=== PATIENT | male | born 1950 | race Hispanic/Latino ===

== ENCOUNTER 2018-08-20 02:31 | Emergency (ER) | payer OTHER ==
[~2018-08-20 02:31] MED LIST: ASPI-1012 PO; CITA-107 PO; LOVA10TA2 PO; METF-444 PO; METO-391 PO; RAMI2.5C16 PO; SPIR50TA5 PO
[2018-08-20] MEDS ORDERED: CYCLOBENZAPRINE HCL 10 MG TABLET ONE (02:44)
[2018-08-20] MEDS ORDERED: KETOROLAC TROMETHAMINE 30MG/ML ONE (02:44)
== END 2018-08-20 02:53 | disposition home or self-care (01) ==
LOC: EDH 02:31
DX: M62.838 Other muscle spasm (principal); M54.2 Cervicalgia; E11.9 Type 2 diabetes mellitus without complications; I10 Essential (primary) hypertension
CPT/HCPCS: 96372; 99283; J1885

== ENCOUNTER 2018-08-21 02:08 | Emergency (ER) | payer OTHER ==
[2018-08-21] MEDS ORDERED: ORPHENADRINE CITRATE 30 MG/ML ML ONE (03:12)
[2018-08-21] MEDS ORDERED: KETOROLAC TROMETHAMINE 30MG/ML ONE (03:12)
== END 2018-08-21 04:41 | disposition home or self-care (01) ==
LOC: EDH 02:08
DX: M54.2 Cervicalgia (principal); M47.9 Spondylosis, unspecified; M62.838 Other muscle spasm; E11.9 Type 2 diabetes mellitus without complications; I10 Essential (primary) hypertension; Z95.0 Presence of cardiac pacemaker; Z98.890 Other specified postprocedural states; Z79.84 Long term (current) use of oral hypoglycemic drugs
CPT/HCPCS: 72125; 96372 ×2; 99284; J1885; J2360

== ENCOUNTER 2018-08-22 00:59 | Emergency (ER) | payer OTHER ==
[2018-08-22 01:43] LABS: BASOPHILS % (AUTO) 0.7 % (0.0-5.0); HEMATOCRIT 36.6 % (42-54); LYMPHOCYTES % (AUTO) 39.8 % (21.0-51.0); MEAN CORPUSCULAR HGB CONC 33.6 g/dL (32.0-36.0); MEAN CORPUSCULAR VOLUME 95.1 fL (79-99); MONOCYTES % (AUTO) 8.7 % (3.0-13.0); NEUTROPHILS % (AUTO) 47.8 % (40.0-77.0); NUCLEATED RED BLOOD CELLS 0.1 % (0.0-0.19); PLATELET COUNT (AUTO) 186 K/uL (130-400); RED BLOOD CELL COUNT(AUTO) 3.85 MIL/uL (4.50-6.20); RED CELL DISTRIBUTION WIDTH 12.8 % (11.0-15.5); WHITE BLOOD COUNT (AUTO) 5.8 K/uL (4.8-10.8)
[2018-08-22 02:08] LABS: CARBON DIOXIDE 28 mmol/L (21-32); CHLORIDE 103 mmol/L (101-111); CREATININE 0.9 mg/dL (0.5-1.5); GLOMERULAR FILTR. RATE CALC 89 mL/min (>60); GLUCOSE,RANDOM 205 mg/dL (70-105); POTASSIUM 4.1 mmol/L (3.5-5.1); SODIUM SERUM 142 mmol/L (136-145); UREA NITROGEN, BLOOD 24 mg/dL (7-18)
[2018-08-22 02:13] LABS: CREATINE KINASE, TOTAL 138 U/L (21-232)
[2018-08-22 02:39] LABS: CRP QUANTITATIVE < 2.00 mg/L (0.00-9.0)
[2018-08-22 02:47] LABS: ERYTHROCYTE SEDIMENTATION RATE 10 MM/HR (0-20)
[2018-08-22] MEDS ORDERED: ORPHENADRINE CITRATE 30 MG/ML ML ONE (02:55)
== END 2018-08-22 05:09 | disposition home or self-care (01) ==
LOC: EDH 00:59
DX: M47.892 Other spondylosis, cervical region (principal); E11.65 Type 2 diabetes mellitus with hyperglycemia; I10 Essential (primary) hypertension
CPT/HCPCS: 36415; 80048; 82550; 84484; 85025; 85651; 86140; 93005; 96374; 99285; J2360

== ENCOUNTER 2018-08-23 01:36 | Emergency (ER) | payer OTHER ==
[2018-08-23 02:39] LABS: BASOPHILS % (AUTO) 0.4 % (0.0-5.0); EOSINOPHILS % (AUTO) 3.7 % (0.0-8.0); HEMATOCRIT 36.8 % (42-54); LYMPHOCYTES % (AUTO) 35.7 % (21.0-51.0); MEAN CORPUSCULAR HEMOGLOBIN 31.7 pg (27.0-33.0); MEAN CORPUSCULAR HGB CONC 33.4 g/dL (32.0-36.0); MEAN CORPUSCULAR VOLUME 94.9 fL (79-99); MONOCYTES % (AUTO) 9.1 % (3.0-13.0); NEUTROPHILS % (AUTO) 51.1 % (40.0-77.0); PLATELET COUNT (AUTO) 187 K/uL (130-400); RED BLOOD CELL COUNT(AUTO) 3.88 MIL/uL (4.50-6.20); RED CELL DISTRIBUTION WIDTH 12.7 % (11.0-15.5); WHITE BLOOD COUNT (AUTO) 5.6 K/uL (4.8-10.8)
[2018-08-23 02:48] LABS: POTASSIUM 4.6 mmol/L (3.5-5.1)
[2018-08-23 02:52] LABS: ALBUMIN 3.6 g/dL (3.5-5.0); BILIRUBIN,TOTAL 0.4 mg/dL (0.2-1.0); TOTAL PROTEIN, SERUM 7.1 g/dL (6.0-8.3)
[2018-08-23 03:00] LABS: CREATINE KINASE, TOTAL 98 U/L (21-232); MYOGLOBIN 29 ng/mL (10-92); TROPONIN I < 0.04 ng/mL (0.00-0.06)
[2018-08-23] MEDS ORDERED: METHYLPREDNISOLONE SOD SUCC 125MG/2ML VIAL ONE (03:47)
[2018-08-23] MEDS ORDERED: TRAMADOL HCL 50 MG TABLET ONE (03:48)
== END 2018-08-23 04:15 | disposition home or self-care (01) ==
LOC: EDH 01:36
DX: M25.512 Pain in left shoulder (principal); E11.65 Type 2 diabetes mellitus with hyperglycemia; I10 Essential (primary) hypertension; Z95.0 Presence of cardiac pacemaker; Z98.890 Other specified postprocedural states
CPT/HCPCS: 36415; 71045; 73030; 80053; 82550; 83874; 84484; 85025; 93005; 96374; 99285; J2930

== ENCOUNTER 2018-08-26 01:43 | Emergency (ER) | payer OTHER ==
[2018-08-26] MEDS ORDERED: KETOROLAC TROMETHAMINE 15MG/ML ONE (02:02)
== END 2018-08-26 02:09 | disposition home or self-care (01) ==
LOC: EDH 01:43
DX: G89.29 Other chronic pain (principal); M54.2 Cervicalgia; M54.5 Low back pain; E11.9 Type 2 diabetes mellitus without complications; I10 Essential (primary) hypertension; I25.10 Atherosclerotic heart disease of native coronary artery without angina pectoris; Z95.0 Presence of cardiac pacemaker; Z98.890 Other specified postprocedural states
CPT/HCPCS: 96372; 99283; J1885

== ENCOUNTER 2020-11-02 19:46 | Emergency (ER) | payer OTHER ==
[2020-11-02] MEDS ORDERED: CYCLOBENZAPRINE HCL 10 MG TABLET ONE (20:13)
[2020-11-02] MEDS ORDERED: HYDROCODONE/ACETAMINOPHEN 10/325 MG TAB ONE (20:15)
== END 2020-11-02 22:03 | disposition home or self-care (01) ==
LOC: EDH 19:46
DX: M43.16 Spondylolisthesis, lumbar region (principal); I10 Essential (primary) hypertension; E11.9 Type 2 diabetes mellitus without complications; I25.10 Atherosclerotic heart disease of native coronary artery without angina pectoris; Z95.0 Presence of cardiac pacemaker
CPT/HCPCS: 72100; 72131

== ENCOUNTER 2021-02-12 17:42 | Emergency (ER) | payer OTHER ==
[~2021-02-12 17:42] MED LIST changes: -RAMI2.5C16 PO; +RAMI2.5C55 PO
[2021-02-12] MEDS ORDERED: LIDOCAINE HCL 1% 20 ML VIAL ONE (18:51)
[2021-02-12] MEDS ORDERED: LIDOCAINE HCL 2% VISCOUS 15 ML UDCUP ONE (18:51)
== END 2021-02-12 20:42 | disposition home or self-care (01) ==
LOC: EDH 17:42
DX: S01.511A Laceration without foreign body of lip, initial encounter (principal); S02.5XXA Fracture of tooth (traumatic), initial encounter for closed fracture; I11.0 Hypertensive heart disease with heart failure; E11.9 Type 2 diabetes mellitus without complications; W18.39XA Other fall on same level, initial encounter; Y93.89 Activity, other specified; Y92.89 Other specified places as the place of occurrence of the external cause; Y99.8 Other external cause status
CPT/HCPCS: 12013; 70450; 72125

== ENCOUNTER 2022-02-27 12:00 | Emergency (ER) | payer OTHER ==
[~2022-02-27] VITALS: Ht 157.5 cm; Wt 81.6 kg
[2022-02-27] MEDS ORDERED: LIDOCAINE HCL MPF 1% 5ML VIAL ONE ×2 (12:30→12:37)
[2022-02-27] MEDS ORDERED: DIPH,PERTUSS(ACELL),TET VAC/PF 0.5 ML VIAL IM SCH (12:30)
[2022-02-27] MEDS ORDERED: TETANUS/DIPHTHERIA TOXOID [ADULT] 0.5 ML VIAL IM ONE (12:37)
[2022-02-27 13:27] VITALS: BP 134/89
== END 2022-02-27 13:33 | disposition home or self-care (01) ==
LOC: EDH 12:00
DX: S01.81XA Laceration without foreign body of other part of head, initial encounter (principal); S50.12XA Contusion of left forearm, initial encounter; E11.9 Type 2 diabetes mellitus without complications; Z79.899 Other long term (current) drug therapy; Z79.82 Long term (current) use of aspirin; Z79.84 Long term (current) use of oral hypoglycemic drugs; Z98.890 Other specified postprocedural states; W01.10XA Fall on same level from slipping, tripping and stumbling with subsequent striking against unspecified object, initial encounter; Y93.9 Activity, unspecified; Y92.9 Unspecified place or not applicable; Y99.9 Unspecified external cause status
CPT/HCPCS: 12013; 90471; 90715; 99283; J3490 ×2; 90714

== ENCOUNTER 2022-03-08 16:46 | Emergency (ER) | payer OTHER ==
[~2022-03-08] VITALS: Ht 167.6 cm; Wt 83.5 kg
[2022-03-08 16:51] VITALS: BP 133/75
== END 2022-03-08 18:02 | disposition left against medical advice (07) ==
LOC: EDH 16:46
DX: S01.81XD Laceration without foreign body of other part of head, subsequent encounter (principal); E11.9 Type 2 diabetes mellitus without complications; E78.00 Pure hypercholesterolemia, unspecified; I10 Essential (primary) hypertension; Z79.82 Long term (current) use of aspirin; Z79.84 Long term (current) use of oral hypoglycemic drugs; Z79.899 Other long term (current) drug therapy; X58.XXXA Exposure to other specified factors, initial encounter; Y93.89 Activity, other specified; Y92.89 Other specified places as the place of occurrence of the external cause; Y99.8 Other external cause status
CPT/HCPCS: 99281

== ENCOUNTER 2022-04-22 17:12 | Emergency (ER) | payer OTHER ==
[~2022-04-22] VITALS: Ht 170.2 cm; Wt 79.8 kg
[2022-04-22 17:33] LABS: BASOPHILS % (AUTO) 0.2 % (0.0-5.0); EOSINOPHILS % (AUTO) 0.4 % (0.0-8.0); HEMATOCRIT 39.9 % (42-54); LYMPHOCYTES % (AUTO) 22.7 % (21.0-51.0); MEAN CORPUSCULAR HEMOGLOBIN 31.1 pg (27.0-33.0); MEAN CORPUSCULAR HGB CONC 33.6 g/dL (32.0-36.0); MEAN CORPUSCULAR VOLUME 92.6 fL (79-99); MONOCYTES % (AUTO) 4.6 % (3.0-13.0); NEUTROPHILS % (AUTO) 71.9 % (40.0-77.0); PLATELET COUNT (AUTO) 220 K/uL (130-400); RED BLOOD CELL COUNT(AUTO) 4.31 MIL/uL (4.50-6.20); RED CELL DISTRIBUTION WIDTH 11.9 % (11.0-15.5); WHITE BLOOD COUNT (AUTO) 8.3 K/uL (4.8-10.8)
[2022-04-22 17:47] LABS: CREATININE 0.8 mg/dL (0.5-1.5)
[2022-04-22 17:55] LABS: ALBUMIN 4.4 g/dL (3.5-5.0); BILIRUBIN,TOTAL 0.5 mg/dL (0.2-1.0); TOTAL PROTEIN, SERUM 7.6 g/dL (6.0-8.3)
[2022-04-22] MEDS ORDERED: PANTOPRAZOLE 40 MG/VIAL IVP ONE (18:00)
[2022-04-22] MEDS ORDERED: MECLIZINE HCL 25 MG TABLET PO ONE (18:00)
[2022-04-22] MEDS ORDERED: ONDANSETRON 4MG INJ IVP ONE (18:00)
[2022-04-22] MEDS ORDERED: 0.9%NACL 1000ML 1,000 ML IV ONE (18:00)
[2022-04-22 18:01] LABS: APPEARANCE,URINE Clear (CLEAR); BILIRUBIN,URINE Negative (NEGATIVE); COLOR,URINE Yellow (YELLOW); GLUCOSE, URINE (UA) 250 mg/dL (NEGATIVE); KETONES,URINE Trace mg/dL (NEGATIVE); LEUKOCYTE ESTERASE ,URINE Negative (NEGATIVE); NITRATE,URINE Negative (NEGATIVE); OCCULT BLOOD,URINE Negative (NEGATIVE); PROTEIN,URINE Trace mg/dL (NEGATIVE)
[2022-04-22 18:11] LABS: BACTERIA,URINE Rare /HPF (None Seen); MUCUS,URINE Moderate LPF (None Seen); SQUAMOUS EPITHELIAL CELL,UR Few /HPF (0-2)
[2022-04-22] MEDS ORDERED: ONDA4TAB10 PO (19:31)
[2022-04-22] MEDS ORDERED: MECL-262 PO (19:31)
[2022-04-22 19:34] VITALS: BP 127/78
== END 2022-04-22 19:38 | disposition home or self-care (01) ==
LOC: EDH 17:12
DX: H81.10 Benign paroxysmal vertigo, unspecified ear (principal); R00.1 Bradycardia, unspecified; R11.2 Nausea with vomiting, unspecified; E11.9 Type 2 diabetes mellitus without complications; E78.00 Pure hypercholesterolemia, unspecified; I10 Essential (primary) hypertension; Z79.899 Other long term (current) drug therapy
CPT/HCPCS: 36415; 70450; 80053; 81001; 84484; 85025; 93005; 96361; 96374; 96375; 99285; C9113; J2405; J7030

== ENCOUNTER 2023-11-15 16:01 | Emergency (ER) | payer OTHER ==
[~2023-11-15] VITALS: Ht 170.2 cm; Wt 76.7 kg
[~2023-11-15 16:01] MED LIST changes: +MECL-262 PO; +ONDA4TAB10 PO
[2023-11-15 16:09] VITALS: BP 116/71; PULSE 66; RESP 16; O2SAT 98
[2023-11-15] MEDS ORDERED: M-SA237L TP (17:25)
[2023-11-15] MEDS ORDERED: DICL20GE TP (17:25)
[2023-11-15] MEDS ORDERED: LIDOP TP (17:25)
[2023-11-15] MEDS ORDERED: KETOROLAC 30MG VIAL (30MG/ML) IM ONE (17:30)
[2023-11-15] MEDS ORDERED: HYDROCODONE/ACETAMINOPHEN 5/325 MG TAB PO ONE (17:30)
== END 2023-11-15 18:14 | disposition home or self-care (01) ==
LOC: EDH 16:01
DX: M54.31 Sciatica, right side (principal); M12.88 Other specific arthropathies, not elsewhere classified, other specified site; I10 Essential (primary) hypertension; E11.9 Type 2 diabetes mellitus without complications; E78.00 Pure hypercholesterolemia, unspecified; Z79.82 Long term (current) use of aspirin; Z79.84 Long term (current) use of oral hypoglycemic drugs; Z79.899 Other long term (current) drug therapy; Z98.890 Other specified postprocedural states
CPT/HCPCS: 99284; 96372; J1885

== ENCOUNTER 2025-09-19 23:37 | Emergency (ER) | payer OTHER ==
[~2025-09-19] VITALS: Ht 167.6 cm; Wt 73.5 kg
[~2025-09-19 23:37] MED LIST changes: +DICL20GE TP; +LIDOP TP; +M-SA237L TP; +ONDA-243 PO; -ONDA4TAB10 PO; -RAMI2.5C55 PO; +RAMI2.5C57 PO
--- NOTE | 2025-09-20 00:10 | NUR ---
PT CARE ASSUMED AT THIS TIME
--- NOTE | 2025-09-20 00:12 | ERN ---
ED Note History of Present Illness Stated Complaint: C/O TINGLING TO BODY Chief Complaint: Numbness Time Seen by MD: 23:41 Dictation: The patient is a 74-year-old male with a past medical history of diabetes mellitus type 2, hypercholesterolemia, hypertension, heart failure with a pacemaker placement. Patient was brought to the ER after for further evaluation, patient said that he was in the restroom sitting to urinating, he stated that he heard a sound and his ear pops, he does reports chronic hearing loss from many years ago. Also he reported to his daughter that his left arm was numb. At moment of my evaluation the patient reports that to symptoms mentioned has gone. Allergies: Coded Allergies: No Known Allergies (Unverified Allergy, Unknown, 12/09/15) Home Meds Active Scripts M-Salicy/Aloe Vera/Men/Euc Oil ([place] Aloe Analgesic Liniment) 10 % Liniment, 1 APPL TP DAILY for 30 Days, #1 BOTTLE 1 Refill massage into affected muscles of body Prov:RHIANNON GARCES 11/15/23 Diclofenac Sodium (Voltaren Arthritis Pain) 1 % Gel..gram., 20 GM TP DAILY, #100 GM 1 Refill Prov:RHIANNON GARCES 11/15/23 Lidocaine (Lidoderm Patch 5%) 5 % Patch, 1 PATCH TP DAILY PRN for PAIN, #7 ADH.PATCH 12 hours on/12 hours off localized area of pain Prov:RHIANNON GARCES 11/15/23 Meclizine HCl (Antivert) 25 Mg Tab.chew, 25 MG PO TID, #15 TAB.CHEW Prov:DANNY OLIVER 04/22/22 Ondansetron (Ondansetron Odt) 4 Mg Tab.rapdis, 4 MG PO TID, #15 TAB Prov:DANNY OLIVER 04/22/22 Spironolactone (Spironolactone) 50 Mg Tablet, 50 MG PO DAILY, #30 TAB 5 Refills Prov:ROBERTH GAINES MD 02/02/16 Metoprolol Succinate (Metoprolol Succinate) 50 Mg Tab.er.24h, 50 MG PO DAILY, #30 TAB 5 Refills Prov:ROBERTH GAINES MD 02/02/16 Aspirin (ASPIRIN) 325 Mg Tablet, 325 MG PO DAILY, #30 TAB Prov:WILBUR CARREON MD 12/12/15 Reported Medications Ramipril (Ramipril) 2.5 Mg Capsule, 2.5 MG PO HS, CAP 01/30/16 Citalopram Hydrobromide (Citalopram HBr) 20 Mg Tablet, 20 MG PO HS, TAB 01/30/16 Lovastatin (Lovastatin) 10 Mg Tablet, 10 MG PO HS, TAB 01/30/16 Metformin HCl (Metformin HCl) 500 Mg Tablet, 500 MG PO BID, TAB 12/11/15 Past Medical History Past Medical History: Diabetes-Type II, High Cholesterol, Hypertension, Other Additional Past Medical Hx: HX OF CLARKE'S PALSY Surgical History: Other Surgical History Other: SHOULDER Family History: Negative Social History: Other Review of System Dictation NEGATIVE EXCEPT PER HPI Constitutional: Negative for fever,chills, and weight loss Eyes: Negative for injury, pain,redness, and discharge ENT: Reports pop sound and loud inside of the ears. Negative for injury,pain or swelling Cardiovascular: denies chest pain, palpitations, and edema Respiratory: Negative for shortness of breath, cough, and wheezing, Abdomen/GI: Negative for abdominal pain, nausea, vomiting, diarrhea, and constipation Back: Negative for injury and pain : Negative for injury, bleeding and discharge MS/Extremity: Negative for injury and deformity Skin: Negative for rash, and discoloration Neuro: Numbness of left arm ? Psych: Negative for suicide ideation, homicidal ideation, and hallucinations Initial Vital Sign VS Vital Signs Date Time Temp Pulse Resp B/P (MAP) Pulse Ox O2 Delivery O2 Flow Rate FiO2 09/19/25 23:39 98.8 72 20 147/78 97 Room Air 09/20/25 00:18 0 21 Physical Exam Dictation General: awake, alert, NAD, disheveled Head/Face: Normocephalic, atraumatic Eyes: PERRL, EOMI, vision at baseline ENT: oral cavity clear, TMs clear, no signs of infection Neck: Trachea midline, supple, no nuchal rigidity Cardiovascular: RRR, normal S1/S2, No MRGs, no JVD, edema of left leg. Respiratory: CTAB, no respiratory distress, No rales or wheezes Abdomen: Soft , no tender Skin: Warm, dry, normal turgor, no rash MS/Extremity: Pulses equal, no cyanosis, neurovascular intact, FROM Neuro: COAx4, GCS 15, strength 5/5, CN 2-12 intact, normal cerebellar exam, normal gait, Psych: Normal behavior, mood, and affect normal Results (Laboratory/Radiology) Laboratory/Radiology Laboratory Tests Test 09/20/25 00:32 White Blood Count 5.8 K/uL (4.8-10.8) Red Blood Count 3.81 MIL/uL (4.50-6.20) L Hemoglobin 12.2 g/dL (14.0-18.0) L Hematocrit 36.9 % (42-54) L Mean Corpuscular Volume 96.9 fL (79-99) Mean Corpuscular Hemoglobin 32.0 pg (27.0-33.0) Mean Corpuscular Hemoglobin Concent 33.1 g/dL (32.0-36.0) Red Cell Distribution Width 12.2 % (11.0-15.5) Platelet Count 205 K/uL (130-400) Mean Platelet Volume 9.6 fL (7.5-10.5) Immature Granulocyte % (Auto) 0.2 % (0-1) Neutrophils (%) (Auto) 60.4 % (40.0-77.0) Lymphocytes (%) (Auto) 28.8 % (21.0-51.0) Monocytes (%) (Auto) 7.5 % (3.0-13.0) Eosinophils (%) (Auto) 2.9 % (0.0-8.0) Basophils (%) (Auto) 0.2 % (0.0-5.0) Neutrophils # (Auto) 3.5 K/uL (1.8-7.7) Lymphocytes # (Auto) 1.7 K/uL (1.0-4.8) Monocytes # (Auto) 0.4 K/uL (0.1-1.0) Eosinophils # (Auto) 0.17 K/uL (0.00-0.70) Basophils # (Auto) 0.01 K/uL (0.00-0.20) Absolute Immature Granulocyte (auto 0.01 K/uL (0-1) Nucleated Red Blood Cells 0.0 % (0.0-0.19) Sodium Level 141 mmol/L (136-145) Potassium Level 4.1 mmol/L (3.5-5.1) Chloride Level 102 mmol/L (101-111) Carbon Dioxide Level 28 mmol/L (21-32) Blood Urea Nitrogen 18 mg/dL (7-18) Creatinine 0.8 mg/dL (0.5-1.3) Glomerular Filtration Rate Calc 92 mL/min (>90) Random Glucose 366 mg/dL (70-105) H Total Calcium 8.6 mg/dL (8.5-10.1) Troponin I High Sensitivity 24 ng/L (4-75) EKG Comment: Sinus rhythm Prolonged CO interval Negative for STEMI ED Course ED Course Orders Procedure Category Date Status Time Cbc With Differential LAB 09/19/25 Complete 23:54 Chest 1vw RAD 09/19/25 Resulted 23:54 12 Lead Ekg Tracing- EKG 09/19/25 Logged Technical 23:54 Troponin I High LAB 09/19/25 Complete Sensitivity 23:54 Urinalysis Profile LAB 09/19/25 Logged 23:54 Basic Metabolic Panel LAB 09/19/25 Complete 23:54 Pacemaker CPOE 09/19/25 Transmitted Interrogation (Er) 23:56 Vital Signs Date Time Temp Pulse Resp B/P (MAP) Pulse Ox O2 Delivery O2 Flow Rate FiO2 09/20/25 02:29 76 15 137/73 96 Room Air* 0 21 09/20/25 00:18 98.8 91 16 157/81 95 Room Air* 0 21 09/19/25 23:39 98.8 72 20 147/78 97 Room Air Medical Decision Making MDM Possible defibrillator went off Malfunction defibrillator Heart failure Dehydration Ordered laboratory workup also cardiac workup. Laboratory workup was unremarkable except for hyperglycemia with a glucose above 300's Chest x-ray was remarkable Defibrillator interrogation was performed, it showed the patient was on AFib early and it went of when it hit on heart rate 193. It pace patient is back to normal sinus rhythm. Patient said that he has not been compliant with a his home medication for heart rate control he is on metoprolol. Patient and was at bedside I recommended I advised the patient to resume his home medication and follow up with a his primary care physician as a with his change management administrator. DX & DISP Disposition: Discharge Departure Impression: Primary Impression: Numbness and tingling in left arm Additional Impressions: Hyperglycemia, Hx of heart failure, Atrial fibrillation, AICD discharge Condition: Stable Additional Instructions: RETURN TO ER FOR ANY ACUTE OR WORSENING SYMPTOMS. FOLLOW-UP IN 1-2 DAYS WITH PRIMARY PROVIDER FOR RECHECK OF TODAY'S SYMPTOMS. Referrals: LASHON SHAW M.D. (PCP) DANIEL NEWELL MD Sep 20, 2025 00:12
--- NOTE | 2025-09-20 00:18 | NUR ---
PT PROVIDED WITH A URINAL TO COLLECT URINE SAMPLE.
[2025-09-20 00:40] LABS: IMMATURE GRANULOCYTE ABSOLUTE 0.01 K/uL (0-1); NUCLEATED RED BLOOD CELLS 0.0 % (0.0-0.19); PLATELET COUNT (AUTO) 205 K/uL (130-400); RED BLOOD CELL COUNT(AUTO) 3.81 MIL/uL (4.50-6.20); RED CELL DISTRIBUTION WIDTH 12.2 % (11.0-15.5); WHITE BLOOD COUNT (AUTO) 5.8 K/uL (4.8-10.8)
[2025-09-20 00:53] LABS: CREATININE 0.8 mg/dL (0.5-1.3); GLOMERULAR FILTR. RATE CALC 92.0 mL/min (>90); GLUCOSE,RANDOM 366.0 mg/dL (70-105); SODIUM SERUM 141.0 mmol/L (136-145); UREA NITROGEN, BLOOD 18.0 mg/dL (7-18)
--- NOTE | 2025-09-20 00:53 | NUR ---
PACEMAKER INTERROGATION DONE. PENDING REPORT FROM [facility]
--- NOTE | 2025-09-20 01:18 | HMCIMG ---
EXAM: CR Chest, 1 view. CLINICAL HISTORY: Chest discomfort. COMPARISON: None. FINDINGS: The lungs show no infiltration or other acute findings. No pleural effusion or pneumothorax. The cardio mediastinal silhouette is within normal limits. There is an AICD device. No acute osseous abnormality. IMPRESSION: No acute cardiopulmonary pathology is evident. /[place]
--- NOTE | 2025-09-20 02:32 | NUR ---
ABBOT DEVICE TROUT FARMER ([facility]) AT BEDSIDE AT THIS TIME FOR INTERROGATION OF PACEMAKER.
[2025-09-20 03:29] VITALS: BP 138/71; PULSE 73; RESP 18; TEMP 98.8; O2SAT 96
--- NOTE | 2025-09-20 06:26 | EKG ---
[facility] Test Date: 2025-09-20 Test Time: 00:10:35 Pat Name: JERRI BARFIELD Department: [facility] Patient ID: [id number] Room: Gender: M Hand Rounder: [id number] : 1950 Requested By: DANIEL ELLIOTT Order Number: [id number] Reading MD: Danielle Banks Measurements Intervals [place] Rate: 85 P: 44 ND: 229 QRS: -79 QRSD: 129 T: 53 QT: 398 QTc: 472 Interpretive Statements Sinus rhythm Prolonged ND interval Probable left atrial enlargement RBBB and LAFB Compared to ECG 04/22/2022 18:20:46 First degree AV block now present Left anterior fascicular block now present Right bundle-branch block now present Sinus bradycardia no longer present T-wave abnormality no longer present Electronically Signed On 09-20-2025 11:43:19 CDT by Danielle Banks Please click the below link to view image of tracing.
== END 2025-09-20 03:36 | disposition home or self-care (01) ==
LOC: EDH 23:37
DX: R20.0 Anesthesia of skin (principal); R20.2 Paresthesia of skin; E11.65 Type 2 diabetes mellitus with hyperglycemia; I48.91 Unspecified atrial fibrillation; E78.00 Pure hypercholesterolemia, unspecified; E11.9 Type 2 diabetes mellitus without complications; I11.0 Hypertensive heart disease with heart failure; I50.9 Heart failure, unspecified; Z79.82 Long term (current) use of aspirin; Z79.84 Long term (current) use of oral hypoglycemic drugs; Z79.899 Other long term (current) drug therapy; Z79.1 Long term (current) use of non-steroidal anti-inflammatories (NSAID)
CPT/HCPCS: 36415; 71045; 80048; 84484; 85025; 93005; 99284; 99285

== ENCOUNTER 2025-11-01 17:43 | Emergency (ER) | payer OTHER ==
[~2025-11-01] VITALS: Ht 170.2 cm; Wt 68.0 kg
[2025-11-01 17:46] VITALS: TEMP 98.4
--- NOTE | 2025-11-01 18:00 | NUR ---
PT JUST NOW PLACED IN ED BED 11. PT IS VERY MALODOROUS ALTHOUGH DOES NOT APPEAR TO BE SO.
--- NOTE | 2025-11-01 18:04 | ERN ---
ED Note History of Present Illness Stated Complaint: DEFIBRILLATOR PROBLEM Chief Complaint: Other Problems Time Seen by MD: 17:46 Dictation: In his a 74-year-old male here with his with complaints of having this AICD 2 HOURS PRIOR TO ARRIVAL. HE STATES HE WAS WASHING DISHES WHEN HE FELT THE SHOCK. HE STATES IT HAS NOT HAPPENED SINCE HE DOES NOT REMEMBER THE NAME OF THE DEFIBRILLATOR, HAS A PRESS BRAKE OPERATOR'S DR. GAINES,. HE STATES DR. PAL DENIES ANY CHEST PAIN/SOB. NO NAUSEA NO VOMITING STATES HE JUST WANTS TO HAVE IT CHECKED OUT. Allergies: Coded Allergies: No Known Allergies (Unverified Allergy, Unknown, 12/09/15) Home Meds Active Scripts M-Salicy/Aloe Vera/Men/Euc Oil ([place] Aloe Analgesic Liniment) 10 % Liniment, 1 APPL TP DAILY for 30 Days, #1 BOTTLE 1 Refill massage into affected muscles of body Prov:RHIANNON GARCES 11/15/23 Diclofenac Sodium (Voltaren Arthritis Pain) 1 % Gel..gram., 20 GM TP DAILY, #100 GM 1 Refill Prov:RHIANNON GARCES 11/15/23 Lidocaine (Lidoderm Patch 5%) 5 % Patch, 1 PATCH TP DAILY PRN for PAIN, #7 ADH.PATCH 12 hours on/12 hours off localized area of pain Prov:RHIANNON GARCES 11/15/23 Meclizine HCl (Antivert) 25 Mg Tab.chew, 25 MG PO TID, #15 TAB.CHEW Prov:DANNY OLIVER 04/22/22 Ondansetron (Ondansetron Odt) 4 Mg Tab.rapdis, 4 MG PO TID, #15 TAB Prov:DANNY OLIVER 04/22/22 Spironolactone (Spironolactone) 50 Mg Tablet, 50 MG PO DAILY, #30 TAB 5 Refills Prov:ROBERTH GAINES MD 02/02/16 Metoprolol Succinate (Metoprolol Succinate) 50 Mg Tab.er.24h, 50 MG PO DAILY, #30 TAB 5 Refills Prov:ROBERTH GAINES MD 02/02/16 Aspirin (ASPIRIN) 325 Mg Tablet, 325 MG PO DAILY, #30 TAB Prov:WILBUR CARREON MD 12/12/15 Reported Medications Ramipril (Ramipril) 2.5 Mg Capsule, 2.5 MG PO HS, CAP 01/30/16 Citalopram Hydrobromide (Citalopram HBr) 20 Mg Tablet, 20 MG PO HS, TAB 01/30/16 Lovastatin (Lovastatin) 10 Mg Tablet, 10 MG PO HS, TAB 01/30/16 Metformin HCl (Metformin HCl) 500 Mg Tablet, 500 MG PO BID, TAB 12/11/15 Past Medical History Past Medical History: Diabetes-Type II, High Cholesterol, Hypertension, Other Additional Past Medical Hx: HX OF CLARKE'S PALSY Surgical History: Other Surgical History Other: SHOULDER Family History: Negative Social History: Other RN Note Reviewed/Agreed w/PFSH: Yes Review of System Dictation MY ROS CONSTITUTIONAL: NEGATIVE EXCEPT FOR HPI HEAD/FACE: NEGATIVE EXCEPT FOR HPI EENT: NEGATIVE EXCEPT FOR HPI RESPIRATORY: NEGATIVE EXCEPT FOR HPI DEFIBRILLATOR DISCHARGED GASTROINTESTINAL/ABDOMINAL: NEGATIVE EXCEPT FOR HPI GENITOURINARY: NEGATIVE EXCEPT FOR HPI MUSCULOSKELETAL: NEGATIVE EXCEPT FOR HPI INTEGUMENTARY: NEGATIVE EXCEPT FOR HPI NEUROLOGICAL/PSYCH: NEGATIVE EXCEPT FOR HPI HEMATOLOGIC/LYMPHATIC: NEGATIVE EXCEPT FOR HPI ALL SYSTEMS NEGATIVE, EXCEPT NOTED ABOVE. 13 POINT REVIEW OF SYSTEMS ASSESSED AND ALL NEGATIVE EXCEPT FOR ABOVE. Initial Vital Sign VS Vital Signs Date Time Temp Pulse Resp B/P (MAP) Pulse Ox O2 Delivery O2 Flow Rate FiO2 11/01/25 17:46 98.4 84 20 114/63 99 Room Air 0 11/01/25 19:19 21 Physical Exam Dictation VITAL SIGNS REVIEWED GENERAL APPEARANCE: ALERT, ORIENTED X 3, NO ACUTE DISTRESS, WELL DEVELOPED, NOURISHED. 0/10 PAIN HEAD AND FACE: NON-TRAUMATIC. EYES: PERRL, PINK CONJUNCTIVAS, EYELID NO TRAUMA, ANTERIOR CHAMBER WITH ARCUS SENILIS. EARS: PINNAS INTACT AND NO SIGNS OF TRAUMA OR ERYTHEMA EAR CANALS CLEAR AND NO DISCHARGE TM NO ERYTHEMA NOSE: NO DISCHARGE, NO BLEEDING. OROPHARYNX: MOUTH NORMAL, TONGUE PINK, PHARYNX CLEAR,NO ERYTHEMA, TONSILS NO EXUDATES, NO ABSCESSES NOTED, MUCOUS MEMBRANE MOIST NECK: SUPPLE, NON-TENDER, NO THYROMEGALY, NO MASSES, NO JVD, NO BRUITS BREAST:DEFERRED CHEST:NO TENDERNESS, NO CREPITUS, NO PARADOXICAL MOVEMENT, NO RETRACTIONS LUNGS:CLEAR, WELL-VENTILATED, SYMMETRIC, NO RALES, NO WHEEZING, NO RHONCHI, NO STRIDOR, GOOD BREATH SOUNDS BILATERALLY HEART: REGULAR RATE, REGULAR RHYTHM, NO MURMUR, NO GALLOPS VASCULAR: NO PERIPHERAL EDEMA, ABDOMEN: SOFT, POSITIVE BOWEL SOUNDS, NONDISTENDED, NO GUARDING, NONTENDER, NO REBOUND, NO MASSES NO HEPATOMEGALY, NO SPLENOMEGALY, NO MAHARAJ'S SIGN, NO HERNIAS. RECTAL: DEFERRED GENITAL: DEFERRED NEUROLOGICAL: NORMAL SPEECH, MOTOR FUNCTION INTACT, SENSORY FUNCTION INTACT MUSCULOSKELETAL: NECK NONTENDER, FULL RANGE OF MOTION, BACK NONTENDER, FULL RANGE OF MOTION, EXTREMITIES: NONTENDER, FULL RANGE OF MOTION SKIN: COLOR PINK, DRY, NO TURGOR, NO RASH, NO LACERATIONS, NO ABRASIONS, NO CONTUSIONS. LYMPHATIC: DEFERRED Results (Laboratory/Radiology) Laboratory/Radiology Laboratory Tests Test 11/01/25 18:08 White Blood Count 5.4 K/uL (4.8-10.8) Red Blood Count 4.01 MIL/uL (4.50-6.20) L Hemoglobin 12.6 g/dL (14.0-18.0) L Hematocrit 38.2 % (42-54) L Mean Corpuscular Volume 95.3 fL (79-99) Mean Corpuscular Hemoglobin 31.4 pg (27.0-33.0) Mean Corpuscular Hemoglobin Concent 33.0 g/dL (32.0-36.0) Red Cell Distribution Width 12.7 % (11.0-15.5) Platelet Count 225 K/uL (130-400) Mean Platelet Volume 8.9 fL (7.5-10.5) Immature Granulocyte % (Auto) 0.2 % (0-1) Neutrophils (%) (Auto) 61.7 % (40.0-77.0) Lymphocytes (%) (Auto) 25.7 % (21.0-51.0) Monocytes (%) (Auto) 10.7 % (3.0-13.0) Eosinophils (%) (Auto) 1.3 % (0.0-8.0) Basophils (%) (Auto) 0.4 % (0.0-5.0) Neutrophils # (Auto) 3.4 K/uL (1.8-7.7) Lymphocytes # (Auto) 1.4 K/uL (1.0-4.8) Monocytes # (Auto) 0.6 K/uL (0.1-1.0) Eosinophils # (Auto) 0.07 K/uL (0.00-0.70) Basophils # (Auto) 0.02 K/uL (0.00-0.20) Absolute Immature Granulocyte (auto 0.01 K/uL (0-1) Nucleated Red Blood Cells 0.0 % (0.0-0.19) Sodium Level 141 mmol/L (136-145) Potassium Level 4.8 mmol/L (3.5-5.1) Chloride Level 103 mmol/L (101-111) Carbon Dioxide Level 28 mmol/L (21-32) Blood Urea Nitrogen 14 mg/dL (7-18) Creatinine 0.9 mg/dL (0.5-1.3) Glomerular Filtration Rate Calc 89 mL/min (>90) Random Glucose 233 mg/dL (70-105) H Total Calcium 9.2 mg/dL (8.5-10.1) Magnesium Level 1.90 mg/dL (1.80-2.40) Troponin I High Sensitivity 22 ng/L (4-75) B-Type Natriuretic Peptide 162 pg/mL (0-100) H 1800 REASON: SOB ORDERING PHYSICIAN: ANNALISA SOLORIO PROCEDURE: CXR1VW - CHEST 1VW EXAM: CR Chest, 1 view CLINICAL HISTORY: Shortness of breath. COMPARISON: 09/20/2025. FINDINGS: The lungs show no infiltrates or other acute findings. No pleural effusion or pneumothorax. The cardiomediastinal silhouette is within normal limits. Left-sided cardiac pacemaker device in place. No acute osseous abnormality. Orthopedic anchors in the left proximal humerus. IMPRESSION: No acute cardiopulmonary process is evident. Compared to the prior study, there is no significant interval change. /[facility] Labs Reviewed?: Yes EKG Comment: 1811/EKG SINUS RHYTHM/HEART RATE 77/RIGHT BUNDLE BRANCH BLOCK ED Course ED Course Orders Procedure Category Date Status Time B-Type Natriuretic LAB 11/01/25 Complete Peptide 18:00 Cbc With Differential LAB 11/01/25 Complete 18:00 Chest 1vw RAD 11/01/25 Resulted 18:00 12 Lead Ekg Tracing- EKG 11/01/25 Complete Technical 18:00 Magnesium LAB 11/01/25 Complete 18:00 Troponin I High LAB 11/01/25 Complete Sensitivity 18:00 Basic Metabolic Panel LAB 11/01/25 Complete 18:00 Pacemaker CPOE 11/01/25 Transmitted Interrogation (Er) 18:00 Vital Signs Date Time Temp Pulse Resp B/P (MAP) Pulse Ox O2 Delivery O2 Flow Rate FiO2 11/01/25 20:58 69 18 146/71 100 Room Air* 0 21 11/01/25 20:49 74 18 110/69 98 Room Air* 0 21 11/01/25 19:19 74 18 107/68 97 Room Air* 0 21 11/01/25 17:46 98.4 84 20 114/63 99 Room Air 0 2102/SPOKE TO PATIENT AT LENGTH REGARDING THE CLINICAL FINDINGS AND THE INTERROGATION OF HIS DEFIBRILLATOR. HE AND HIS ARE BOTH AWARE OF DEFIBRILLATOR SHOWING RUNS OF V-TACH, ATRIAL FIBRILLATION ATRIAL FLUTTER. IT HAS GONE OFF TWICE IN THE LAST SEVERAL WEEKS. I ADVISED HIM I WOULD LIKE TO KEEP HIM IN THE HOSPITAL FOR EVALUATION BY THE PRESS BRAKE OPERATOR'S TOMORROW. PATIENT REFUSED SAID HE IS GOING HOME AND HE SAID THAT IS WHY HAVE THE DEFIBRILLATOR ON-CALL. HE IS ALERT AND ORIENTED X4 SPEECH IS CLEAR IS AT BEDSIDE AND SHE IS COMPLETELY LUCID. I WE WILL HAVE PATIENT IS SIGNED OUT AMA HEART Score Response (Comments) Value EKG: Repolarization changes 1 Age: > 65yrs (+2) 2 Risk Factors: 3+ risk factors (+2) 2 Initial Troponin: Normal limit (0) 0 Total 5 Medical Decision Making MDM MDM: DIFFERENTIAL DIAGNOSIS: ACS/AMI/ELECTROLYTE IMBALANCE/DEHYDRATION/PNEUMONIA/BRONCHITIS RATIONALE: TESTS CONSIDERED AND ORDERED SECONDARY TO SHARED DECISION MAKING INCLUDE: EKG/LABS/CHEST X-RAY/INTERROGATION OF DEFIBRILLATOR PREVIOUS OUTSIDE RECORDS REVIEWED: OLD ER VISITS. RISK OF COMPLICATION AND/OR MORBIDITY OR MORTALITY OF PATIENT MANAGEMENT: NONE MEDICATIONS-PER MEDICATION RECONCILIATION NEED FOR HOSPITALIZATION: PATIENT DOES NOT MEET CRITERIA FOR HOSPITALIZATION. PATIENT REFUSED AND SIGNED OUT AGAINST MEDICAL ADVICE NEED FOR EMERGENCY MAJOR/MINOR SURGERY: NO THERE ARE NO SOCIAL CONCERNS WITH THIS PATIENT. PRESCRIPTION DRUG MANAGEMENT PRESCRIPTIONS WILL INCLUDE SYMPTOMATIC CARE PATIENT'S PRIOR EXTERNAL MEDICAL RECORDS FROM OTHER ER VISITS WERE REVIEWED BY ME INDICATED. PRIOR TESTING AND RESULTS FROM PREVIOUS VISITS WERE REVIEWED. PRIOR TESTS WERE TAKEN INTO ACCOUNT WITH MEDICAL DECISION MAKING AND RESOURCE UTILIZATION, INDEPENDENT HISTORIAN/HISTORIANS WERE USED TO OBTAIN COMPLETE MEDICAL HISTORY. I INDEPENDENTLY INTERPRETED THE TEST THAT WERE PERFORMED, RESULTS WERE REVIEWED BY ME AND CONSIDERED FINDINGS ON RADIOLOGY IF ORDERED. MEDICAL MANAGEMENT AND EXAMINATION INTERPRETATION DISCUSSIONS WERE HAD BY ME WITH OTHER QUALIFIED HEALTHCARE PROFESSIONALS INDICATED FOR THE PATIENT'S CARE. DX & DISP Disposition: AMA Departure Impression: Primary Impression: AICD discharge Additional Impressions: Chronic anemia, Uncontrolled diabetes mellitus, Elevated brain natriuretic peptide (BNP) level Condition: Stable Additional Instructions: FOLLOW-UP WITH PRIMARY CARE PROVIDER IN 1 TO 2 DAYS. TAKE MEDICATIONS DIRECTED HERE IN THE EMERGENCY ROOM. OKAY TO CONTINUE HOME MEDICATIONS UNLESS OTHERWISE DISCUSSED DURING YOUR VISIT IN THE EMERGENCY ROOM TODAY. RETURN TO YOUR NEAREST EMERGENCY ROOM IF SYMPTOMS WORSEN OR IF THERE IS NO IMPROVEMENT. CALL 911 IF YOU NEED IMMEDIATE ASSISTANCE. TAKE TYLENOL OR MOTRIN [id number] NEEDED AND IF NO CONTRAINDICATIONS ARE PRESENT. INCREASE ORAL HYDRATION. A WOUND CULTURE OR URINE CULTURE WAS ORDERED HERE IN THE EMERGENCY ROOM DEPARTMENT PLEASE FOLLOW-UP WITH PRIMARY CARE PROVIDER AND ADVISE THEM TO GET REPEAT PORTS FROM OUR FACILITY. IF YOU HAD ANY NGUYEN WRAP/SPLINTS THAT WERE APPLIED HERE, PLEASE DO NOT REMOVE THEM UNTIL YOU SEE YOUR PRIMARY CARE OR SPECIALTY. RETURN TO THE EMERGENCY ROOM IF ANY QUESTIONS OR CONCERNS. SEE YOUR PRESS BRAKE OPERATOR'S OR PRIMARY CARE DOCTOR FOR FOLLOW UP Referrals: LASHON SHAW M.D. (PCP) Time of Disposition: 21:07 I have reviewed the case, and I agree with, Diagnosis and Plan ANNALISA SOLORIO Nov 01, 2025 18:04
--- NOTE | 2025-11-01 18:16 | EKG ---
[facility] Test Date: 2025-11-01 Test Time: 18:12:23 Pat Name: JERRI BARFIELD Department: [facility] Room: Gender: M Design Drafter: [id number] : 1950 Requested By: ANNALISA SOLORIO Order Number: [id number] Reading MD: Jordan Ly Measurements Intervals [place] Rate: 77 P: -2 UT: 205 QRS: -73 QRSD: 125 T: 55 QT: 405 QTc: 460 Interpretive Statements Sinus rhythm RBBB and LAFB Compared to ECG 09/20/2025 00:10:35 First degree AV block no longer present Electronically Signed On 11-04-2025 13:06:00 DIELECTRIC TESTER by Jordan Ly Please click the below link to view image of tracing.
[2025-11-01 18:17] LABS: IMMATURE GRANULOCYTE ABSOLUTE 0.01 K/uL (0-1); NUCLEATED RED BLOOD CELLS 0.0 % (0.0-0.19); PLATELET COUNT (AUTO) 225 K/uL (130-400); RED BLOOD CELL COUNT(AUTO) 4.01 MIL/uL (4.50-6.20); RED CELL DISTRIBUTION WIDTH 12.7 % (11.0-15.5); WHITE BLOOD COUNT (AUTO) 5.4 K/uL (4.8-10.8)
--- NOTE | 2025-11-01 18:33 | NUR ---
INTERROGATION OF AICD ATTEMPTED TO INTERROGATE THE PTS AICD D/T HIS STATEMENT THAT HE WAS "SHOCKED" AT ABOUT 1530HRS. PT DENIES ANY OTHER COMPLAINTS.
[2025-11-01 18:42] LABS: CREATININE 0.9 mg/dL (0.5-1.3); GLOMERULAR FILTR. RATE CALC 89.0 mL/min (>90); GLUCOSE,RANDOM 233.0 mg/dL (70-105); SODIUM SERUM 141.0 mmol/L (136-145); UREA NITROGEN, BLOOD 14.0 mg/dL (7-18)
--- NOTE | 2025-11-01 19:20 | NUR ---
REPORT ENDORSED TO SAY BELCHER
--- NOTE | 2025-11-01 19:27 | NUR ---
ART REPRESENATIVE OF [facility] WILL COME OVER TO INTERIGATE DEFIBRILATOR.
--- NOTE | 2025-11-01 19:44 | HMCIMG ---
EXAM: CR Chest, 1 view CLINICAL HISTORY: Shortness of breath. COMPARISON: 09/20/2025. FINDINGS: The lungs show no infiltrates or other acute findings. No pleural effusion or pneumothorax. The cardiomediastinal silhouette is within normal limits. Left-sided cardiac pacemaker device in place. No acute osseous abnormality. Orthopedic anchors in the left proximal humerus. IMPRESSION: No acute cardiopulmonary process is evident. Compared to the prior study, there is no significant interval change. /[place]
--- NOTE | 2025-11-01 19:57 | NUR ---
ART OF [facility] HERE INTERIGATTING DEFIBRILLATOR.
[2025-11-01 20:58] VITALS: BP 146/71; PULSE 69; RESP 18; O2SAT 100
== END 2025-11-01 21:15 | disposition left against medical advice (07) ==
LOC: EDH 17:43
DX: T82.198A Other mechanical complication of other cardiac electronic device, initial encounter (principal); Z95.810 Presence of automatic (implantable) cardiac defibrillator; D64.9 Anemia, unspecified; E11.65 Type 2 diabetes mellitus with hyperglycemia; R79.89 Other specified abnormal findings of blood chemistry; I10 Essential (primary) hypertension; E78.00 Pure hypercholesterolemia, unspecified; Z79.1 Long term (current) use of non-steroidal anti-inflammatories (NSAID); Z79.82 Long term (current) use of aspirin; Z79.84 Long term (current) use of oral hypoglycemic drugs; Z79.899 Other long term (current) drug therapy; Y83.8 Other surgical procedures as the cause of abnormal reaction of the patient, or of later complication, without mention of misadventure at the time of the procedure; Y92.89 Other specified places as the place of occurrence of the external cause
CPT/HCPCS: 36415; 71045; 80048; 83735; 83880; 84484; 85025; 93005; 99285